=== PATIENT | female | born 1990 | race Caucasian/White ===

== ENCOUNTER 2021-02-15 10:03 | Emergency (ER) | payer OTHER ==
[~2021-02-15] VITALS: Ht 160 cm; Wt 97.1 kg
[2021-02-15 10:14] VITALS: BP 156/78
[2021-02-15] MEDS ORDERED: ACETAMINOPHEN EXTRA STRENGTH 500 MG TAB PO ONE (10:40)
--- NOTE | 2021-02-15 11:00 | NUR ---
NOVEL AND FLU SWABS COLLECTED AND WALKED TO LAB.
--- NOTE | 2021-02-15 11:08 | NUR ---
30/F BIB SELF WITH COLD SYMPTOMS. STATES SHE HAS BEEN HAVING WORSENING BODY ACHES, COUGH AND CONGESTION, ALSO REPORTS HEMATURIA. REPORTS TAKING TYLENOL WITH NO RELIEF, DENIES RECENT SICK CONTACTS, DENIES CP OR SOB.
[2021-02-15 12:53] VITALS: BP 156/78
--- NOTE | 2021-02-15 12:53 | NUR ---
Mary forde in [facility] - 02/15/21 at 1253 by OCTAVIA NO NURSING INTERVENTIONS PROVIDED
--- NOTE | 2021-02-15 12:54 | NUR ---
Patient discharged with v/s stable. Written and verbal after care instructions ABOUT COVID 19 given and explained. Patient verbalized understanding. Ambulatory with steady gait. All questions addressed prior to discharge. Advised to follow up with PMD.
== END 2021-02-15 12:54 | disposition home or self-care (01) ==
LOC: MED 10:03
DX: J06.9 Acute upper respiratory infection, unspecified (principal)
CPT/HCPCS: 81002; 81025; 87804; 99283